=== PATIENT | male | born 1990 | race Two or more races ===

== ENCOUNTER 2019-04-19 18:41 | Inpatient (IN) | payer OTHER ==
[~2019-04-19] VITALS: Ht 167.6 cm; Wt 75.9 kg
[2019-04-19] MEDS ORDERED: THIAMINE 100mg/ml INJ (200mg/2ml VIAL) IV ONE (19:00)
[2019-04-19 19:53] LABS: Basophils # (auto) 0.1 uL; Basophils % (auto) 0.4 % (0.0-2.0); Eosinophils # (auto) 0 uL; Eosinophils % (auto) 0.3 % (0.0-7.0); Hematocrit 32.9 % (41.0-53.0); Hemoglobin 10.8 g/dL (13.5-17.5); Lymphocytes # (auto) 1.1 uL; Lymphocytes % (auto) 7.5 % (10.0-50.0); Mean Corpuscular Hemoglobin 31.5 pg (28.0-32.0); Mean Corpuscular Hgb Conc. 32.8 g/dL (32.0-36.0); Mean Corpuscular Volume 96.2 fL (80.0-100.0); Monocytes % (auto) 7.1 % (0.0-12.0); Neutrophils % (auto) 84.7 % (37.0-80.0); Platelet Count (auto) 209 10^3/uL (140-450); Red Blood Cells 3.43 10^6/uL (4.5-5.90); Red Cell Distribution Width 12.8 % (11.8-14.3); White Blood Cell 14.1 10^3/uL (4.4-10.8)
[2019-04-19 20:06] LABS: Albumin 3.7 g/dL (3.4-5.0); Anion Gap 14 (5-15); Blood Urea Nitrogen 10 mg/dL (7-18); Calcium 7.8 mg/dL (8.5-10.1); Carbon Dioxide 19 mmol/L (21-32); Chloride 88 mmol/L (98-107); Glucose 111 mg/dL (74-106); Potassium 3.5 mmol/L (3.5-5.1); Sodium 121 mmol/L (136-145)
[2019-04-19 20:10] LABS: Alanine Aminotransferase 108 U/L (16-61); Alkaline Phosphatase 69 U/L (45-117); Aspartate Aminotransferase 56 U/L (15-37); BUN/Creatinine Ratio 8.8; Bilirubin, Total 0.8 mg/dL (0.2-1.0); Blood Alcohol < 3.0 mg/dL (0-5); GFR African American 97 mL/min; GFR Non-African American 80 mL/min; Total Protein 6.9 g/dL (6.4-8.2)
[2019-04-19] MEDS ORDERED: LORazepam 2MG/ML-1ML VIAL IV ONE (20:30)
[2019-04-19] MEDS ORDERED: ONDANSETRON HCL 4 MG/2 ML VIAL IV ONE (20:30)
[2019-04-19] MEDS ORDERED: SODIUM CHLORIDE 0.9% 2,000 ML IV ONE (20:30)
[2019-04-19] MEDS ORDERED: HALOPERIDOL LACTATE 5 MG/ML INJ VIAL ONE (20:43)
[2019-04-19] MEDS ORDERED: diphenhdrAMINE HCL 50 MG/1 ML VL ONE ×2 (20:43→22:36)
[2019-04-19] MEDS ORDERED: HALOPERIDOL LACTATE 5 MG/ML INJ VIAL IM ONE (21:00)
[2019-04-19] MEDS ORDERED: diphenhdrAMINE HCL 50 MG/1 ML VL IV ONE (21:15)
[2019-04-19] MEDS ORDERED: LORazepam 2MG/ML-1ML VIAL ONE (22:36)
[2019-04-19 23:07] LABS: Urine Bacteria FEW /hpf (None Seen); Urine Blood 2+ /uL (Negative); Urine Sperm PRESENT /hpf (None Seen); Urine WBC 2 /hpf (0 - 3)
[2019-04-19 23:24] LABS: Alcohol, Urine < 3.0 mg/dL (0-5); Amphetamine Screen, Urine POSITIVE (NEGATIVE); Barbiturate Scree,Urine NEGATIVE (NEGATIVE); Benzodiazephine Screen, Urine NEGATIVE (NEGATIVE); Cannabinoid Screen, Urine NEGATIVE (NEGATIVE); Cocaine Screen, Urine NEGATIVE (NEGATIVE); Opiate Scree,Urine NEGATIVE (NEGATIVE); Phencyclidine Screen, Urine NEGATIVE (NEGATIVE)
[2019-04-20] VITALS (10 sets, daily range): BP systolic 100–136; BP diastolic 69–88
[2019-04-20] MEDS ORDERED: MIDAZOLAM HCL 5 MG/ML-1ML VIAL IV ONE
[2019-04-20] MEDS ORDERED: PHENobarbital SODIUM 130 MG/ML VL IV ONE ×2 (01:45→02:00)
[2019-04-20] MEDS ORDERED: IPRATROPIUM BROM 0.5 MG/2.5ML INH SOL NEB PRN (04:30)
[2019-04-20] MEDS ORDERED: ONDANSETRON HCL 4 MG/2 ML VIAL IV PRN (04:30)
[2019-04-20] MEDS ORDERED: ALBUTEROL SULF 2.5 MG/0.5ML(0.5%) NEB SOLN NEB PRN (04:30)
[2019-04-20] MEDS ORDERED: MORPHINE SULFATE 4 MG/ML SYR/VIAL IV PRN (04:30)
[2019-04-20] MEDS ORDERED: ETOMIDATE (2MG/ML) 20ML VIAL IV ONE ×2 (04:33→05:00)
[2019-04-20] MEDS ORDERED: SUCCINYLCHOLINE CHLORIDE 20 MG/ML 10ML VIAL IV ONE ×2 (04:33→05:00)
[2019-04-20] MEDS ORDERED: PROPOFOL 100 ML IV ONE (04:34)
[2019-04-20] MEDS ORDERED: MIDAZOLAM DRIP 50 mg/50mL 50 ML IV ONE (04:38)
[2019-04-20] MEDS: PROPOFOL 100 ML IV SCH ×2 (04:58→22:03)
[2019-04-20] MEDS: MIDAZOLAM DRIP 50 mg/50mL 50 ML IV SCH ×2 (04:58→22:04)
[2019-04-20] MEDS ORDERED: cefTRIAXone 1GM/50ML D5W 50 ML IV SCH (05:06)
[2019-04-20 07:00] LABS: Basophils # (auto) 0 uL; Basophils % (auto) 0.2 % (0.0-2.0); Eosinophils # (auto) 0 uL; Hematocrit 40.8 % (41.0-53.0); Hemoglobin 14.6 g/dL (13.5-17.5); Lymphocytes % (auto) 8.2 % (10.0-50.0); Mean Corpuscular Hgb Conc. 35.8 g/dL (32.0-36.0); Mean Corpuscular Volume 89.4 fL (80.0-100.0); Monocytes # (auto) 1.1 uL; Monocytes % (auto) 9.3 % (0.0-12.0); Neutrophils # (auto) 9.5 uL; Neutrophils % (auto) 82.3 % (37.0-80.0); Nucleated Red Blood Cells % 0.1 %; Platelet Count (auto) 226 10^3/uL (140-450); Red Blood Cells 4.56 10^6/uL (4.5-5.90); Red Cell Distribution Width 12.6 % (11.8-14.3); White Blood Cell 11.6 10^3/uL (4.4-10.8)
[2019-04-20 07:20] LABS: BUN/Creatinine Ratio 9.1; Calcium 7.8 mg/dL (8.5-10.1); Potassium 3.3 mmol/L (3.5-5.1)
[2019-04-20] MEDS: SODIUM CHLORIDE 0.9% 1,000 ML IV SCH ×3 (07:37→12:54)
[2019-04-20] MEDS: ACETAMINOPHEN 650 MG RECT SUPP PR PRN (07:53)
[2019-04-20] MEDS ORDERED: METOCLOPRAMIDE HCL 5MG/ml INJ 2ml VIAL IV PRN (12:15)
[2019-04-20] MEDS ORDERED: POTASSIUM CHLORIDE 40 MEQ, LIDOCAINE 1% (LOCAL ANESTH.) 4 ML in SODIUM CHL 0.9% 100 ML IV ONE (12:15)
[2019-04-20] MEDS ORDERED: LORazepam 2MG/ML-1ML VIAL IV PRN (13:45)
[2019-04-20] MEDS: FREE WATER GT SCH ×3 (15:13→22:03)
[2019-04-20] MEDS ORDERED: diphenhdrAMINE HCL 50 MG/1 ML VL IV PRN (15:45)
[2019-04-20 16:37] LABS: Potassium 4.1 mmol/L (3.5-5.1)
[2019-04-21] VITALS (11 sets, daily range): BP systolic 100–132; BP diastolic 65–94
[2019-04-21] MEDS: SODIUM CHLORIDE 0.9% 1,000 ML IV SCH (01:57)
[2019-04-21] MEDS: FREE WATER GT SCH ×6 (02:04→22:49)
[2019-04-21 06:19] LABS: Basophils # (auto) 0.1 uL; Basophils % (auto) 0.5 % (0.0-2.0); Eosinophils # (auto) 0.1 uL; Eosinophils % (auto) 0.9 % (0.0-7.0); Hematocrit 45.4 % (41.0-53.0); Hemoglobin 15.2 g/dL (13.5-17.5); Lymphocytes # (auto) 1.4 uL; Lymphocytes % (auto) 12.2 % (10.0-50.0); Mean Corpuscular Hemoglobin 31.7 pg (28.0-32.0); Mean Corpuscular Hgb Conc. 33.4 g/dL (32.0-36.0); Mean Corpuscular Volume 95.1 fL (80.0-100.0); Monocytes # (auto) 1.5 uL; Monocytes % (auto) 12.7 % (0.0-12.0); Neutrophils # (auto) 8.5 uL; Neutrophils % (auto) 73.7 % (37.0-80.0); Platelet Count (auto) 180 10^3/uL (140-450); Red Blood Cells 4.77 10^6/uL (4.5-5.90); Red Cell Distribution Width 13.2 % (11.8-14.3); White Blood Cell 11.5 10^3/uL (4.4-10.8)
[2019-04-21 06:30] LABS: Chloride 110 mmol/L (98-107); Potassium 3.8 mmol/L (3.5-5.1); Sodium 134 mmol/L (136-145)
[2019-04-21 06:37] LABS: Anion Gap 4 (5-15); BUN/Creatinine Ratio 12.9; Blood Urea Nitrogen 9 mg/dL (7-18); Calcium 7.4 mg/dL (8.5-10.1); Carbon Dioxide 20 mmol/L (21-32); GFR African American 170 mL/min; GFR Non-African American 141 mL/min; Glucose 71 mg/dL (74-106)
[2019-04-21] MEDS: PROPOFOL 100 ML IV SCH ×2 (07:58→13:41)
[2019-04-21] MEDS: D5W/SOD CHLO 0.9% 1,000 ML IV SCH ×2 (09:26→22:49)
[2019-04-21] MEDS ORDERED: LORazepam 2MG/ML-1ML VIAL IV PRN (09:45)
[2019-04-21] MEDS: MIDAZOLAM DRIP 50 mg/50mL 50 ML IV SCH (13:37)
[2019-04-21] MEDS: FOLIC ACID 1 MG, MULTIPLE VITAMIN 10 ML, MAGNESIUM SULF SDV 50% 8 MEQ, THIAMINE INJ 100... INJ SCH ×5 (13:42)
[2019-04-21] MEDS ORDERED: MORPHINE SULF INJ 2 MG/ML SYRINGE 1ML IV PRN (14:15)
[2019-04-21] MEDS: ACETAMINOPHEN 650 MG RECT SUPP PR PRN (17:07)
[2019-04-21] MEDS: CLINDAMYCIN 600MG IV 50 ML IV SCH (23:19)
[2019-04-22] VITALS (7 sets, daily range): BP systolic 113–133; BP diastolic 73–82
[2019-04-22] MEDS: ACETAMINOPHEN 650 MG RECT SUPP PR PRN ×2 (00:08→05:57)
[2019-04-22] MEDS: FREE WATER GT SCH ×4 (02:22→13:57)
[2019-04-22] MEDS: CLINDAMYCIN 600MG IV 50 ML IV SCH ×3 (05:56→22:58)
[2019-04-22 06:40] LABS: Potassium 3.6 mmol/L (3.5-5.1)
[2019-04-22 06:47] LABS: BUN/Creatinine Ratio 9.1; Calcium 7.8 mg/dL (8.5-10.1)
[2019-04-22] MEDS ORDERED: cefTRIAXone 1GM/50ML D5W 50 ML IV ONE (09:15)
[2019-04-22] MEDS: D5W/SOD CHLO 0.9% 1,000 ML IV SCH (11:01)
[2019-04-22] MEDS: FOLIC ACID 1 MG, MULTIPLE VITAMIN 10 ML, MAGNESIUM SULF SDV 50% 8 MEQ, THIAMINE INJ 100... INJ SCH ×5 (13:57)
[2019-04-22] MEDS ORDERED: ENOXAPARIN SOD 40 MG/0.4 ML SYRINGE SC ONE (14:00)
[2019-04-22] MEDS ORDERED: ASPirin 81 mg TAB PO ONE (14:00)
[2019-04-23 05:28] VITALS: BP 129/59
[2019-04-23 05:56] LABS: Basophils # (auto) 0.1 uL; Basophils % (auto) 1.2 % (0.0-2.0); Eosinophils # (auto) 0.2 uL; Eosinophils % (auto) 2.8 % (0.0-7.0); Hemoglobin 14.6 g/dL (13.5-17.5); Lymphocytes # (auto) 1.4 uL; Lymphocytes % (auto) 15.8 % (10.0-50.0); Mean Corpuscular Hemoglobin 32.1 pg (28.0-32.0); Mean Corpuscular Hgb Conc. 34.7 g/dL (32.0-36.0); Mean Corpuscular Volume 92.5 fL (80.0-100.0); Monocytes # (auto) 0.7 uL; Monocytes % (auto) 8.1 % (0.0-12.0); Neutrophils # (auto) 6.3 uL; Neutrophils % (auto) 72.1 % (37.0-80.0); Platelet Count (auto) 249 10^3/uL (140-450); Red Blood Cells 4.54 10^6/uL (4.5-5.90); Red Cell Distribution Width 12.6 % (11.8-14.3); White Blood Cell 8.8 10^3/uL (4.4-10.8)
[2019-04-23 06:20] LABS: Potassium 3.5 mmol/L (3.5-5.1)
[2019-04-23] MEDS: D5W/SOD CHLO 0.9% 1,000 ML IV SCH (06:26)
[2019-04-23] MEDS: CLINDAMYCIN 600MG IV 50 ML IV SCH ×3 (06:26→22:14)
[2019-04-23 06:28] LABS: BUN/Creatinine Ratio 5.6
[2019-04-23] MEDS ORDERED: LORazepam 2MG/ML-1ML VIAL IV PRN (08:45)
[2019-04-23 09:00] VITALS: BP 137/94
[2019-04-23] MEDS ORDERED: cefTRIAXone 1GM/50ML D5W 50 ML IV SCH (09:00)
[2019-04-23 09:06] VITALS: BP 129/59
[2019-04-23] MEDS: ENOXAPARIN SOD 40 MG/0.4 ML SYRINGE SC SCH (09:21)
[2019-04-23] MEDS ORDERED: ASPirin 81 mg TAB PO SCH (10:00)
[2019-04-23] MEDS ORDERED: LORazepam 0.5 MG TAB PO PRN (11:45)
[2019-04-23] MEDS: FOLIC ACID 1 MG, MULTIPLE VITAMIN 10 ML, MAGNESIUM SULF SDV 50% 8 MEQ, THIAMINE INJ 100... INJ SCH ×5 (12:00)
[2019-04-23 13:00] VITALS: BP 121/62
[2019-04-23 17:00] VITALS: BP 126/83
[2019-04-23 21:21] VITALS: BP 123/97
[2019-04-24 05:52] VITALS: BP 139/99
[2019-04-24] MEDS: CLINDAMYCIN 600MG IV 50 ML IV SCH (06:15)
[2019-04-24 07:25] VITALS: BP 124/79
[2019-04-24] MEDS ORDERED: levoFLOXacin 250 MG TAB PO ONE (09:00)
[2019-04-24] MEDS ORDERED: LEVO750T64 PO (09:04)
[2019-04-24] MEDS: ENOXAPARIN SOD 40 MG/0.4 ML SYRINGE SC SCH (09:15)
[2019-04-24 11:40] VITALS: BP 109/57
[2019-04-24] MEDS: FOLIC ACID 1 MG, MULTIPLE VITAMIN 10 ML, MAGNESIUM SULF SDV 50% 8 MEQ, THIAMINE INJ 100... INJ SCH ×5 (12:00)
[2019-04-24 16:26] VITALS: BP 118/68
== END 2019-04-24 17:00 | disposition home or self-care (01) | DRG 812 ==
LOC: EDBD 18:41 → ER 18:41 → TELE 18:42 → TELE-EAST 04-22 21:05 → EAST 04-23 18:40
PROVIDERS: ADMIT Hospitalist; ATTEND Internal Medicine
PROC: 5A1945Z Respiratory Ventilation, 24-96 Consecutive Hours (ICD-10-PCS; principal; 2019-04-20)
PROC: 0BH17EZ Insertion of Endotracheal Airway into Trachea, Via Natural or Artificial Opening (ICD-10-PCS; 2019-04-20)
DX: T43.621A Poisoning by amphetamines, accidental (unintentional), initial encounter (principal); J96.00 Acute respiratory failure, unspecified whether with hypoxia or hypercapnia; J15.0 Pneumonia due to Klebsiella pneumoniae; G92 Toxic encephalopathy; T51.0X1A Toxic effect of ethanol, accidental (unintentional), initial encounter; F10.129 Alcohol abuse with intoxication, unspecified; E87.1 Hypo-osmolality and hyponatremia; E87.6 Hypokalemia; G40.909 Epilepsy, unspecified, not intractable, without status epilepticus; F41.9 Anxiety disorder, unspecified; A49.01 Methicillin susceptible Staphylococcus aureus infection, unspecified site; Z85.038 Personal history of other malignant neoplasm of large intestine; Z78.1 Physical restraint status; Z80.0 Family history of malignant neoplasm of digestive organs; Z82.5 Family history of asthma and other chronic lower respiratory diseases; Z83.3 Family history of diabetes mellitus; Z87.891 Personal history of nicotine dependence; F15.121 Other stimulant abuse with intoxication delirium
CPT/HCPCS: 31500; 36415; 36600; 70450; 71045; 72125; 80048; 80053; 80307; 80320; 81001; 82805; 82962; 83615; 84132; 84295; 85025; 87040; 87070; 87077; 87186; 87205; 93971; 94002; 94003; 94640; 95819; 96361; 96374; 96375; 99291; G0378; J0330; J0696; J2001; J2250; J2405; J2704; J3490; J7042